=== PATIENT | female | born 1950 | race Hispanic/Latino ===

== ENCOUNTER 2017-03-08 08:51 | Outpatient (CLI) | payer MEDICARE, OTHER ==
--- NOTE | 2017-03-08 10:07 | CT ---
CT CHEST NONCONTRAST HIGH RESOLUTION: History: Interstitial lung disease. Follow up. Comparison: 09-24-15 FINDINGS: Slight enlargement of the trachea and mainstem bronchi is similar in appearance to the previous exam. Peripheral interstitial thickening and traction bronchiectasis involving primarily the lower lobes i s again demonstrated. Honeycombing better demonstrated on the previous study is partially obscured by motion artifact on today's exam. No pleural fluid, pneumothorax, or lobar consolidation are apparent . High resolution technique does not well evaluate for pulmonary nodules or the mediastinum. No bulky a denopathy is visible. IMPRESSION: Severe fibrotic lung disease with prominent intralobular and interlobular septal thickening, similar in appearance to the previous exam. No significant progression or new abnormalities are apparent. POS: [facility]
--- NOTE | 2017-03-09 09:17 | PFT ---
PATIENT HISTORY: HEIGHT: 61 IN WEIGHT: 97 LBS SMOKER: NO HOW LONG: PACKS PER DAY: PRODUCTIVE COUGH: NO LUNG DISEASE: PULMONARY FIBROSIS PHYSICIAN INTERPRETATION FINAL REPORT: There is a moderate reduction in the expiratory flow and VC, there is a worsening in the expiratory flow and VC following the bronchodilator. Patient was unable to exhale for the required 6 seconds during the FVC, multiply attempts were made. No lung volumes were ordered. DLCO was severely reduced. IMPRESSION: Restrictive pulmonary impairment. Patient had poor understanding of PFT and was unable to complete the test with good effort. Home Theatre Technician: TAMICA Workforce Services Representative: TAMICA YEE
== END 2017-03-08 08:52 | disposition home or self-care (01) ==
LOC: CT 08:51
PROVIDERS: ATTEND Internal Medicine
DX: J84.10 Pulmonary fibrosis, unspecified (principal)
CPT/HCPCS: 71250; 94010; 94729

== ENCOUNTER 2017-07-19 08:59 | Outpatient (CLI) | payer MEDICARE | END 2017-07-19 09:00 | disposition home or self-care (01) | LOC: CP 08:59 | PROVIDERS: ATTEND Internal Medicine | DX: J84.9 Interstitial pulmonary disease, unspecified (principal) ==

== ENCOUNTER 2017-07-19 09:41 | Inpatient (IN) | payer MEDICARE ==
[2017-07-19 10:25] LABS: #Basophils 0.1 thou/uL (0.0-0.2); #Eosinphils 0.2 thou/uL (0.0-0.7); #Lymphocytes 2.1 thou/uL (1.20-3.40); #Monocytes 0.6 thou/uL (0.11-0.59); #Neutrophils 6.2 thou/uL (1.40-6.50); %Basophils 0.7 % (0.0-1.0); %Lymphocytes 23.2 % (21.0-51.0); %Monocytes 6.4 % (0.0-10.0); %Neutrophils 67.7 % (42.0-75.0); Mean Corpuscular HGB CONC 30.9 g/dL (32.0-36.0); Mean Corpuscular Hemoglobin 27.7 pg (27.0-31.0); Mean Corpuscular Volume 89.6 fl (81.0-99.0); Platelet Count 341 thou/uL (130-400); RBC Distribution Width 14.2 % (11.5-14.5); Red Blood Cell (RBC) Count 4.33 mill/uL (4.20-5.40); White Blood Cell (WBC) Count 9.2 thou/uL (4.8-10.8)
[2017-07-19 10:44] LABS: ALT (SGPT) 11 U/L (8-55); AST (SGOT) 27 U/L (5-34); Albumin 3.4 g/dL (3.4-4.8); Alkaline Phosphatase 90 U/L (40-150); Anion Gap 17 mmol/L (10-20); BUN (Urea Nitrogen) 21 mg/dL (9.8-20.1); Bilirubin, Total 0.8 mg/dL (0.2-1.2); Calc. Creatinine Clearance 0 mL/min (70-130); Calcium 9.1 mg/dL (7.8-10.44); Carbon Dioxide 22 mmol/L (23-31); Chloride 102 mmol/L (98-107); Estimated GFR-MDRD 72; Globulin 3.9 g/dL (2.4-3.5); Glucose 229 mg/dL (80-115); Potassium 4.3 mmol/L (3.5-5.1); Protein, Total 7.3 g/dL (6.0-8.3); Sodium 137 mmol/L (136-145)
[2017-07-19] MEDS ORDERED: ISOVUE-370 76%-LOCM 1 ML ONE (11:02)
[2017-07-19 11:22] LABS: Base Excess-Venous 5.6 mmol/L (0 (+/- 2.5)); Bicarbonate (HCO3v) 32.5 mmol/L (1.0-85.0); CO2 Tension (PvCO2) 55.9 mmHg (41.0-51.0); Calcium, Ionized 1.18 mmol/L (1.12-1.32); O2 Tension (PvO2) 21.1 mmHg (35.0-45.0); Potassium 3.7 mmol/L (3.4-4.7); T. Carbon Dioxide 34.2 mmol/L (1.0-85.0); pH (Venous) 7.373 (7.35-7.45)
[2017-07-19 11:53] LABS: CKMB 2.7 ng/mL (0-6.6); Troponin I 0.117 ng/mL (< 0.028)
--- NOTE | 2017-07-19 11:59 | RAD ---
PORTABLE CHEST ONE VIEW: 07/19/2017 9:35 a.m. HISTORY: Dyspnea. COMPARISON: 09/24/2015 FINDINGS: The heart size is enlarged. Diffuse interstitial changes, consistent with fibrosis, are again seen. No lobar consolidation, pneumothoraces, ang pleural edema, or pleural effusions are identified. POS: [facility]
[2017-07-19] MEDS ORDERED: Enoxaparin Sodium 60 MG/0.6 ML SYRINGE ONE (12:35)
--- NOTE | 2017-07-19 12:52 | CT ---
CT ANGIO CHEST WITH IV CONTRAST: Technique: Multiple axial tomograms were obtained through the chest with IV enhancement follow [facility] [place] angio protocol with multiplanar reconstruction and 3D post processing. Indications: Shortness of breath, cough, hypoxia. History of pulmonary fibrosis. Assess for pulmonary embolus. FINDINGS: Pulmonary arteries show adequate opacification. There is a linear filling defect in the right lower l obe pulmonary artery consistent with a right lower lobe pulmonary embolus. No other filling defect id entified. The lungs again show diffuse honeycombing peripherally with interstitial thickening, pleural thickeni ng, and fibrotic stranding consistent with chronic lung disease. Aorta is not well opacified and thoracic aorta cannot be adequately evaluated. There is no evidence o f aneurysmal dilation. There is evidence of mediastinal and hilar adenopathy. Enlarged precarinal ly mph node measures up to 3.3 cm. There are bilateral hilar nodes with the right infrahilar node measur ing up to 1.3 cm. IMPRESSION: 1. Linear defect consistent with a pulmonary embolus in an anterior right lower lung pulmonary artery , possibly right middle lobe. 2. Mediastinal and hilar adenopathy. A 1.3 cm node in the right infrahilar region and mediastinal lym ph nodes measuring up to 2.3 cm. 3. Chronic lung parenchymal changes. 4. Findings were relayed to Dr. Dowling by phone at the time of dictation. POS: [facility]
--- NOTE | 2017-07-19 13:21 | HP ---
PRIMARY CARE PHYSICIAN: Dr. Cherry Alfonso. PRIMARY PROSTHETIC MAKEUP DESIGNER: Dr. Lobo. REASON FOR ADMISSION: Sent from the benefit specialist's office for respiratory distress. HISTORY OF PRESENT ILLNESS: A 67-year-old female who has underlying chronic respiratory failure on home oxygen therapy as well as idiopathic pulmonary fibrosis, diabetes type 2, hypertension, and dyslipidemia who went to see Dr. Lobo earlier today for her regular followup visit. The patient appeared tachypneic with respiratory rate in 40s, and she was saturating only 82 % on 4 liter oxygen. Patient was also tachycardic and relatively hypotensive and that is why the patient was sent to emergency room from Dr. Lobo's office. When patient presented to emergency room, she was in respiratory distress with tachypnea. She required nonrebreather oxygen and after that her oxygen saturation improved. Patient denies any chest pain. She does feel dyspnea on exertion. Her exercise tolerance and walking distance significantly reduced. Her appetite is also reduced and she lost some weight. She reports that she was feeling dizzy, weak and she was feeling dry mouth and her urine was dark and concentrated. She denies any dysuria, hematuria. She denies any pleuritic chest pain. She denies any syncope. She denies any orthopnea, PND or leg swelling. She is able to sleep during nighttime without any problems. She does have dry cough without any sputum. She denies any hemoptysis. In the emergency room, this patient had CT angiography which showed subsegmental pulmonary embolism on the right side. The patient is treated with oxygen in the emergency room and she was given Lovenox 1 mg per kg as well as DuoNeb therapy was given. After that, patient's condition was little bit stabilized. ALLERGIES: No known drug allergy. CURRENT HOME MEDICATIONS: Metformin 1000 mg twice daily, losartan 100 mg p.o. daily, Lipitor 80 mg p.o. daily, CellCept 500 mg p.o. twice daily, Protonix 40 mg p.o. daily, prednisone 15 mg p.o. daily. REVIEW OF SYSTEMS: The following complete review of systems was negative, unless otherwise mentioned in the HPI or below: Constitutional: Weight loss or gain, ability to conduct usual activities. Skin: Rash, itching. Eyes: Double vision, pain. ENT/Mouth: Nose bleeding, neck stiffness, pain, tenderness. Cardiovascular: Palpitations, dyspnea on exertion, orthopnea. Respiratory: Shortness of breath, wheezing, cough, hemoptysis, fever or night sweats. Gastrointestinal: Poor appetite, abdominal pain, heartburn, nausea, vomiting, constipation, or diarrhea. Genitourinary: Urgency, frequency, dysuria, nocturia. Musculoskeletal: Pain, swelling. Neurologic/Psychiatric: Anxiety, depression. Allergy/Immunologic: Skin rash, bleeding tendency. Please see my HPI for pertinent positive and negative. All other review of systems reviewed and negative except as mentioned in the HPI. PAST MEDICAL HISTORY: Hypertension, diabetes type 2, idiopathic pulmonary fibrosis, chronic respiratory failure on home oxygen therapy. PAST SURGICAL HISTORY: Reviewed and negative. PAST PSYCHIATRIC HISTORY: Reviewed and negative. SOCIAL HISTORY: Patient is and lives at home with her . No history of tobacco, alcohol or illicit drug abuse. FAMILY HISTORY: No strong family history of premature coronary artery disease, stroke or cancer. Diabetes and hypertension runs among several family members. EMERGENCY ROOM COURSE: Patient is given Lovenox 1 mg per kg, DuoNeb therapy. PHYSICAL EXAMINATION: VITAL SIGNS: On arrival, blood pressure 104/66, pulse 95, respiratory rate 45, temperature 97.7, saturation 82% on 4 liter nasal cannula, 100% with nonrebreather, weight 52.1 kilograms. GENERAL: Patient is currently alert, awake, no obvious acute distress. HEENT: Head: Normocephalic, atraumatic. Eyes: Pupils round, reactive to light. Pale conjunctivae. No icterus. No nystagmus. Extraocular muscle intact. ENT: Dry appearing mucous membrane. No oral lesion, no pharyngeal erythema, no exudate. NECK: Supple, no JVD, no thyromegaly, no carotid bruit, no jugular venous distention. LUNGS: Bibasilar coarse crackles, tachypnea. No wheezing. CARDIAC: S1, S2 appears regular. Slight tachycardia. No murmur, no gallop, no rub. ABDOMEN: Soft, bowel sounds present, nontender, nondistended. No organomegaly , no mass, no suprapubic tenderness. BACK: Unremarkable, no CVA tenderness. EXTREMITIES: Upper extremity, passive movement of all joints are normal. Lower extremity, no edema. Good peripheral pulsation, no calf tenderness. SKIN: No skin rash. HEMATOLOGICAL: No lymphadenopathy. PSYCHIATRIC: Normal affect. SIGNIFICANT LABORATORY DATA AND IMAGING: EKG showing normal sinus rhythms without any ischemic changes. The environmental monitoring technician showing sinus rhythm. CT angiography showing segmental right lower lobe pulmonary embolism, pulmonary fibrosis type of picture. BMP shows sodium 137, potassium 4.3, chloride 102, carbon dioxide 22, anion gap 17, BUN 21, creatinine 0.80, glucose 229, calcium 9.1. LFT: Protein 7.3, albumin 3.4, AST 27, ALT 11, alkaline phosphatase 90. CBC: WBC 9.2, hemoglobin 12.0, platelets 341. VBG: pH 7.37, CO2 55.9, O2 21.2 , bicarbonate 32.5. CK-MB 2.7, troponin 0.117. ASSESSMENT: 1. Acute on chronic respiratory failure with hypoxia secondary to combined idiopathic pulmonary fibrosis as well as pulmonary embolism. 2. Right segmental pulmonary embolism. 3. Elevated troponin, likely due to demand ischemia. 4. Idiopathic pulmonary fibrosis gradually worsening. 5. Diabetes type 2, uncontrolled. 6. Hypertension. 7. Dyslipidemia. 8. Mild protein calorie malnutrition. PLAN: Full admission to telemetry floor, serial cardiac enzymes x3 to rule out acute coronary syndrome. Echocardiography to assess ejection fraction and other structural abnormality as well as right ventricular pressure. Lovenox 1 mg per kg subcu twice daily for anticoagulation. We will check stool for guaiac. We will monitor H&H, creatinine, and platelet periodically. The patient will need newer anticoagulant therapy, Eliquis upon discharge. Patient will be given Solu-Medrol 40 mg IV q.6 hours, DuoNeb therapy q.6 hourly and as needed basis, Dulera two puff inhalation b.i.d. We will resume the patient's home medication including losartan, metformin, Lipitor, CellCept, Protonix while in hospital as per home dosage. Deep venous thrombosis prophylaxis. Patient is already on full dose of Lovenox therapy. Gastrointestinal prophylaxis. Protonix 40 mg p.o. daily. CODE STATUS: The patient is FULL CODE. Patient's is surrogate decision maker. Disposition plan based on clinical course. We are expecting patient's stay in hospital more than 2 midnights. Plan of care discussed with the patient and her at bedside extensively. We will also consult Dr. Lobo while in hospital. NAKIA
[2017-07-19 13:45] LABS: Troponin I 0.154 ng/mL (< 0.028)
[2017-07-19] MEDS ORDERED: Benzonatate 100 MG CAP PO PRN (13:55)
[2017-07-19] MEDS ORDERED: hydrALAZINE 20 MG/ML VIAL SLOW IVP PRN (13:55)
[2017-07-19] MEDS ORDERED: Loperamide HCl 2 MG CAP PO PRN (13:55)
[2017-07-19] MEDS ORDERED: Diabetic Tussin 200 MG/10 ML UDCUP PO PRN (13:55)
[2017-07-19] MEDS ORDERED: Loratadine 10 MG TAB PO PRN (13:55)
[2017-07-19] MEDS ORDERED: Milk Of Magnesia 30 ML UDCUP PO PRN (13:55)
[2017-07-19] MEDS ORDERED: HumaLOG 300 UNITS/3 ML VIAL SC PRN (13:55)
[2017-07-19] MEDS ORDERED: Dextrose 50% Abboject 50 ML SYRINGE SLOW IVP PRN (13:55)
[2017-07-19] MEDS ORDERED: Eucerin (Mineral Oil/Petrolatum,White) 30 gm Jar TOP PRN (13:55)
[2017-07-19] MEDS ORDERED: Dextrose 5% in Water 1,000 ML IV PRN (13:55)
[2017-07-19] MEDS ORDERED: Ondansetron ODT 4 MG TAB PO PRN (13:55)
[2017-07-19] MEDS ORDERED: HYDROcodone/Acetaminophen 5/325 mg Tablet PO PRN (13:55)
[2017-07-19] MEDS ORDERED: Acetaminophen 325 MG TAB PO PRN (13:55)
[2017-07-19] MEDS ORDERED: Senokot 8.6 MG TAB PO PRN (13:55)
[2017-07-19] MEDS ORDERED: Artificial Tear Sol 15 ML BOT EA EYE PRN (13:55)
[2017-07-19] MEDS ORDERED: Ondansetron HCl/PF 4 MG/2 ML Vial IVP PRN (13:55)
[2017-07-19] MEDS ORDERED: Sodium Chloride 0.65% Nasal 44 ML BOT EA NARE PRN (13:55)
[2017-07-19] MEDS ORDERED: Chloraseptic Spray 180 ml Bottle PO PRN (13:55)
--- NOTE | 2017-07-19 15:17 | ULT ---
BILATERAL LOWER EXTREMITY VENOUS DUPLEX EXAM: Date: 07/19/17 Deep veins of both lower extremities evaluate with color Doppler and spectral analysis in compression . INDICATION: Pulmonary embolism. Assess for venous thrombosis. FINDINGS: Deep veins of both lower extremities show normal blood flow and compression. No evidence of deep veno us thrombosis identified in either lower extremity. IMPRESSION: No evidence of deep venous thrombosis. POS: [facility]
[2017-07-19] MEDS ORDERED: Ondansetron ODT 4 MG TAB ONE (15:43)
[2017-07-19 16:53] LABS: Troponin I 0.148 ng/mL (< 0.028)
[2017-07-19 17:06] VITALS: BMI 15.7
[2017-07-19] MEDS: Sodium Chloride 0.9% 1,000 ML IV SCH (17:38)
[2017-07-19] MEDS: Mometasone/Formoterol 120 PUFF INHALER INH SCH (20:18)
[2017-07-19] MEDS: Atorvastatin Calcium 40 MG TAB PO SCH (20:33)
[2017-07-19] MEDS: Enoxaparin Sodium 60 MG/0.6 ML SYRINGE SC SCH (20:34)
[2017-07-20 04:04] LABS: #Lymphocytes 0.6 thou/uL (1.20-3.40); #Neutrophils 3.6 thou/uL (1.40-6.50); %Basophils 0.2 % (0.0-1.0); %Eosinophils 0.2 % (0.0-10.0); %Lymphocytes 14.3 % (21.0-51.0); %Monocytes 0.9 % (0.0-10.0); %Neutrophils 84.4 % (42.0-75.0); Hemoglobin 11.9 g/dL (12.0-16.0); Mean Corpuscular HGB CONC 30.7 g/dL (32.0-36.0); Mean Corpuscular Hemoglobin 27.7 pg (27.0-31.0); Mean Corpuscular Volume 90.3 fl (81.0-99.0); Platelet Count 304 thou/uL (130-400); RBC Distribution Width 13.9 % (11.5-14.5); Red Blood Cell (RBC) Count 4.29 mill/uL (4.20-5.40); White Blood Cell (WBC) Count 4.3 thou/uL (4.8-10.8)
[2017-07-20] MEDS: Sodium Chloride 0.9% 1,000 ML IV SCH ×2 (04:12→08:23)
[2017-07-20 04:15] LABS: INR-International Normal Ratio 1.2; Prothrombin Time 15.3 SEC (12.0-14.7)
[2017-07-20 04:17] LABS: D-Dimer Test 2.55 *mcg/mL (0.27-0.43)
[2017-07-20 04:40] LABS: Anion Gap 15 mmol/L (10-20); BUN (Urea Nitrogen) 20 mg/dL (9.8-20.1); Calc. Creatinine Clearance 47 mL/min (70-130); Calcium 8.9 mg/dL (7.8-10.44); Carbon Dioxide 26 mmol/L (23-31); Cardiac Risk 3.5 (Less than 4.5); Chloride 103 mmol/L (98-107); Cholesterol 127 mg/dl (< 200 Desired); Estimated GFR-MDRD 81; Glucose 154 mg/dL (80-115); HDL Cholesterol 36 mg/dL (>60 Neg Risk); LDL Cholesterol, Calculated 78 mg/dL; Potassium 4.1 mmol/L (3.5-5.1); Sodium 140 mmol/L (136-145); Triglycerides 65 mg/dL (Less than 150)
[2017-07-20] MEDS: Mometasone/Formoterol 120 PUFF INHALER INH SCH ×2 (07:44→18:19)
[2017-07-20] MEDS: Losartan 25 MG TAB PO SCH (08:21)
[2017-07-20] MEDS: Mycophenolate 250 MG CAP PO SCH ×2 (08:21→20:27)
[2017-07-20] MEDS: DULoxetine 30 MG CAP PO SCH ×2 (08:22→20:27)
[2017-07-20] MEDS: Enoxaparin Sodium 60 MG/0.6 ML SYRINGE SC SCH (08:23)
[2017-07-20] MEDS ORDERED: Non-Formulary Item 1 EACH (Losartan Potassium [Losartan Potassium] 100 MG) PO SCH (09:00)
[2017-07-20] MEDS ORDERED: MYCOPHENOLATE MOFETIL 500 MG PO SCH (09:00)
--- NOTE | 2017-07-20 11:07 | PDOC.PN ---
- Subjective Encounter Start Date: 07/20/17 Encounter Start Time: 09:20 Patient seen and examined. No new complaints. No overnight events pt feels better, less dyspnea, no chest pain, no fever - Objective MAR Reviewed: Yes Vital Signs & Weight: Vital Signs (12 hours) Temp Pulse Resp BP Pulse Ox 07/20/17 08:00 97.5 F L 83 15 100 07/20/17 07:44 97.5 F L 83 15 105/63 100 07/20/17 03:46 97.4 F L 84 24 H 109/71 96 07/20/17 00:29 82 30 H 99 07/19/17 23:46 98.2 F 84 25 H 124/79 98 Weight Admit Weight 83 lb 8 oz Weight 83 lb 8 oz Result Diagrams: 07/20/17 03:46 07/20/17 03:46 Additional Labs: Accuchecks 07/20/17 07/20/17 07/19/17 10:47 05:47 20:08 POC Glucose 198 H 143 H 89 EKG Reviewed by me: Yes (nsr) Phys Exam - Physical Examination Constitutional: NAD HEENT: PERRLA, moist MMs, sclera anicteric Neck: no JVD, supple Respiratory: no wheezing, no rhonchi bilateral coarse rales Cardiovascular: RRR, no significant murmur, no rub Gastrointestinal: soft, non-tender, no distention, positive bowel sounds Musculoskeletal: no edema, pulses present Neurological: non-focal, normal sensation, moves all 4 limbs Psychiatric: normal affect, A&O x 3 Skin: no rash, normal turgor Dx/Plan (1) Acute and chronic respiratory failure with hypoxia Code(s): J96.21 - ACUTE AND CHRONIC RESPIRATORY FAILURE WITH HYPOXIA Status: Acute (2) Demand ischemia of myocardium Code(s): I24.8 - OTHER FORMS OF ACUTE ISCHEMIC HEART DISEASE Status: Acute (3) Pulmonary embolism Code(s): I26.99 - OTHER PULMONARY EMBOLISM WITHOUT ACUTE COR PULMONALE Status : Acute (4) Anxiety and depression Code(s): F41.9 - ANXIETY DISORDER, UNSPECIFIED; F32.9 - MAJOR DEPRESSIVE DISORDER, SINGLE EPISODE, UNSPECIFIED Status: Chronic (5) Diabetes type 2, controlled Code(s): E11.9 - TYPE 2 DIABETES MELLITUS WITHOUT COMPLICATIONS Status: Chronic (6) Hyperlipidemia Code(s): E78.5 - HYPERLIPIDEMIA, UNSPECIFIED Status: Chronic (7) Hypertension Code(s): I10 - ESSENTIAL (PRIMARY) HYPERTENSION Status: Chronic (8) Idiopathic pulmonary fibrosis Code(s): J84.112 - IDIOPATHIC PULMONARY FIBROSIS Status: Chronic (9) Protein-calorie malnutrition, moderate Code(s): E44.0 - MODERATE PROTEIN-CALORIE MALNUTRITION Status: Chronic - Plan cont current plan of care, plan discussed w/ family, respiratory therapy * continue lovenox for PE * continue IV solumderol * selected home medication reconciled * medication reviewed as below * symptomatic treatment * discussed with daughter bedside * Dr Lobo will see her today * echo pending * DC IVF. Review of Systems - Review of Systems Constitutional: weakness. negative: fever, chills, sweats, malaise, other Eyes: negative: Pain, Vision Change, Conjunctivae Inflammation, Eyelid Inflammation, Redness, Other ENT: negative: Ear Pain, Ear Discharge, Nose Pain, Nose Discharge, Nose Congestion, Mouth Pain, Mouth Swelling, Throat Pain, Throat Swelling, Other Respiratory: Cough, Shortness of Breath, SOB with Excertion. negative: Dry, Hemoptysis, Pleuritic Pain, Sputum, Wheezing Cardiovascular: negative: chest pain, palpitations, orthopnea, paroxysmal nocturnal dyspnea, edema, light headedness, other Gastrointestinal: negative: Nausea, Vomiting, Abdominal Pain, Diarrhea, Constipation, Melena, Hematochezia, Other Genitourinary: negative: Dysuria, Frequency, Incontinence, Hematuria, Retention , Other Musculoskeletal: negative: Neck Pain, Shoulder Pain, Arm Pain, Back Pain, Hand Pain, Leg Pain, Foot Pain, Other Skin: negative: Rash, Lesions, Rai, Bruising, Other - Medications/Allergies Allergies/Adverse Reactions: Allergies Allergy/AdvReac Type Severity Reaction Status Date / Time No Known Drug Allergies Allergy Verified 07/19/17 17:18 Medications: Current Medications Acetaminophen (Tylenol) 650 mg PO Q4H PRN PRN Reason: Headache/Fever or Pain Hydrocodone Bitart/Acetaminophen ([place] 5/325) 1 tab PO Q4H PRN PRN Reason: Moderate Pain (4-6) Al Hydroxide/Mg Hydroxide (Maalox) 30 ml PO Q6H PRN PRN Reason: Heartburn or Indigestion Albuterol/Ipratropium (Duoneb) 3 ml NEB [id number] [facility] Last Admin: 07/20/17 07:44 Dose: 3 ml Albuterol/Ipratropium (Duoneb) 3 ml NEB [id number] PRN PRN Reason: SOB &/or Wheezing Artificial Tears (Tears Renewed 15ml Bottle) 0 drop EA EYE PRN PRN PRN Reason: Dry Eyes Aspirin (Aspirin Chewable) 81 mg PO DAILY [facility] Last Admin: 07/20/17 08:21 Dose: 81 mg Atorvastatin Calcium (Lipitor) 80 mg PO HS [facility] Last Admin: 07/19/17 20:33 Dose: 80 mg Benzonatate (Tessalon) 100 mg PO Q4H PRN PRN Reason: Cough Dextrose/Water (Dextrose 50%) 25 gm SLOW IVP PRN PRN PRN Reason: Hypoglycemia Duloxetine HCl (Cymbalta) 30 mg PO BID [facility] Last Admin: 07/20/17 08:22 Dose: 30 mg Enoxaparin Sodium (Lovenox) 50 mg SC 0900,2100 [facility] Last Admin: 07/20/17 08:23 Dose: 50 mg Glucagon (Glucagon) 1 mg IM PRN PRN PRN Reason: Hypoglycemia Guaifenesin (Robitussin Sf) 200 mg PO Q4H PRN PRN Reason: Cough Hydralazine HCl (Apresoline) 10 mg SLOW IVP Q4H PRN PRN Reason: Systolic BP > 180 Dextrose/Water (D5w) 1,000 mls @ 0 mls/hr IV .Q0M PRN; As Directed PRN Reason: Hypoglycemia Insulin Human Lispro (Humalog) 0 units SC .AGGRESSIVE SLIDING PRN PRN Reason: Aggressive Correctional Scale Insulin Human Lispro (Humalog) 0 units SC .BEDTIME SLIDING SC PRN PRN Reason: Bedtime Correctional Scale Loperamide HCl (Imodium) 2 mg PO PRN PRN PRN Reason: Diarrhea/Loose Stools Loratadine (Claritin) 10 mg PO DAILYPRN PRN PRN Reason: Sinus Symptoms Losartan Potassium (Cozaar) 100 mg PO DAILY [facility] Last Admin: 07/20/17 08:21 Dose: 100 mg Magnesium Hydroxide (Milk Of Magnesium) 30 ml PO DAILYPRN PRN PRN Reason: Constipation Methylprednisolone Sodium Succinate (Solu-Medrol) 40 mg IVP Q6HR [facility] Last Admin: 07/20/17 05:11 Dose: 40 mg Mineral Oil/White Petrolatum (Eucerin Cream) 0 gm TOP BIDPRN PRN PRN Reason: Dry Skin Mometasone Furoate/Formoterol Fumar (Dulera 200 Mcg/5 Mcg Inhaler) 2 puff INH BID-RT [facility] Last Admin: 07/20/17 07:44 Dose: 2 puff Mycophenolate Mofetil (Cellcept) 500 mg PO BID [facility] Last Admin: 07/20/17 08:21 Dose: 500 mg Ondansetron HCl (Zofran Odt) 4 mg PO Q6H PRN PRN Reason: Nausea/Vomiting Ondansetron HCl (Zofran) 4 mg IVP Q6H PRN PRN Reason: Nausea/Vomiting Pantoprazole Sodium (Protonix) 40 mg PO DAILY [facility] Last Admin: 07/20/17 08:21 Dose: 40 mg Phenol (Chloraseptic [place] 180 Ml Bot) 0 ml PO PRN PRN PRN Reason: Sore Throat Senna (Senokot) 2 tab PO HSPRN PRN PRN Reason: Constipation Sodium Chloride ([place] Nasal [place] 0.65%) 0 ml EA NARE QIDPRN PRN PRN Reason: Nasal Congestion Sodium Chloride (Flush - Normal Saline) 10 ml IVF Q12HR [facility] Last Admin: 07/20/17 08:24 Dose: 10 ml Sodium Chloride (Flush - Normal Saline) 10 ml IVF PRN PRN PRN Reason: Saline Flush
[2017-07-20] MEDS ORDERED: Furosemide 40 MG TAB PO SCH (16:45)
[2017-07-20] MEDS: HumaLOG 300 UNITS/3 ML VIAL SC PRN (17:40)
--- NOTE | 2017-07-20 19:28 | CON ---
DATE OF CONSULTATION: 07/20/2017 SERVICE: Pulmonary Medicine. INTERVAL HISTORY: The patient is a 67-year-old female with past medical history significant for advanced pulmonary fibrosis and chronic hypoxic respiratory failure. She was in her usual state of health until a couple of years ago. She has had slow progressive dyspnea on exertion. She has e ssentially developed end-stage lung disease. She was going to see me in clinic today, but decided th at her severity of shortness of breath with getting out of her house into a car, and across a couple of cities was too much for her. She redirected to the Emergency Department. In the Emergency Depart ment, a CT PE protocol was done. There was severe right-sided strain on the heart. That being said, there is only very tiny pulmonary embolism. She was started on some anticoagulation. She was given some IV fluids overnight. She denies any current fevers, chills, nausea or vomiting. She coughs on a daily basis. She is on chronic steroid therapy. Otherwise, there has been no interval change to her condition. PAST MEDICAL HISTORY: 1. Idiopathic pulmonary fibrosis. 2. Chronic hypoxic respiratory failure. 3. Type 2 diabetes mellitus. 4. Hypertension. PAST SURGICAL HISTORY: None. SOCIAL HISTORY: The patient is and lives with her . She has a very attentive family. She has no history of alcohol, tobacco or illicit drug use. She has no exposure to chemicals, dust s asbestos or tuberculosis. FAMILY HISTORY: Noncontributory. ALLERGIES: No known drug allergies. MEDICATIONS: List of her inpatient medications were reviewed. Multiple updates were made. REVIEW OF SYSTEMS: General, head, ears, eyes, nose, throat, cardiovascular, respiratory, GI, , mus culoskeletal, neurologic, and skin is negative except as mentioned in the HPI. PHYSICAL EXAMINATION: VITAL SIGNS: Afebrile, pulse 95, blood pressure 107/69, respirations 18, saturation 100% on 4 liters nasal cannula. GENERAL: Patient is awake and alert, in no apparent distress. LUNGS: Decent air entry. Crackles are present. No prolonged expiratory phase. HEART: Normal rate, regular. ABDOMEN: Soft, nontender, nondistended. Bowel sounds are positive. MUSCULOSKELETAL: No cyanosis or clubbing. There is no pitting in the bilateral lower extremities. NEUROLOGIC: Grossly nonfocal. LABORATORY DATA: WBC 4.3, hemoglobin 11.9, platelets 304,000. INR 1.2. A pH 7.33, pCO2 of 56, pO2 of 21. Basic metabolic profile is unremarkable. Troponin is finally down trending to 0.15. Liver f unction studies are essentially unremarkable. IMAGIN. Chest x-ray demonstrates diffuse interstitial changes consistent with fibrosis. No pleural fluid or consolidation is identified. CTA of the chest demonstrates a very small pulmonary embolism. The re is extensive pleural parenchymal lung disease consistent with pulmonary fibrosis with traction bro nchiectasis, and multiple layers of honeycombing, which is worse in the periphery, in dependent regio ns of the lung. There is a mediastinal and hilar adenopathy which measures roughly 1.3 cm in the rig ht infrahilar region. There is some minimally pathologic mediastinal lymph nodes measuring 2.3 cm. 2. Ultrasound of bilateral lower extremities demonstrates no evidence of DVT. 3. Echocardiogram demonstrates severely elevated right ventricular pressures with paradoxical septal motion. E to A flow reversal is identified suggestive of some diastolic dysfunction, which is likel y coming from the right ventricular overload. Left atrium has normal size. There is marked dilation of the right atrium and the right ventricle. There is a small, trivial pericardial effusion. ASSESSMENT: 1. Acute on chronic hypoxic respiratory failure. 2. Chronic hypercapnic respiratory failure. 3. Acute pulmonary embolism. 4. Idiopathic pulmonary fibrosis, advanced. 5. Pulmonary hypertension, severe with cor pulmonale. PLAN: We will de-escalate the steroids. I agree with anticoagulation. She will likely require life long anticoagulation moving forward. This is because she cannot tolerate even a small PE. This PE d id not create her elevated systolic pulmonary artery pressures. She currently is severely volume ove rloaded on the right side. We are going to cautiously discontinue her IV fluids, and introduce small doses of Lasix. If it appears that she does not tolerate this, I will initiate her on an inotropic agent to see if we can facilitate diuresis and offload the right ventricle. [facility] the outpatient [facility], she will need to have a formal evaluation for pulmonary hypertension to see whether or not she is a candidate for pulmonary vasodilators. She will need to stay in IMCU for the time being.
[2017-07-20] MEDS: Apixaban 5 MG TAB PO SCH (20:27)
[2017-07-20] MEDS: Atorvastatin Calcium 40 MG TAB PO SCH (20:27)
[2017-07-21 04:21] LABS: Hemoglobin 10.6 g/dL (12.0-16.0); Platelet Count 288 thou/uL (130-400)
[2017-07-21 04:25] LABS: INR-International Normal Ratio 1.5; Prothrombin Time 18.6 SEC (12.0-14.7)
[2017-07-21] MEDS: Mometasone/Formoterol 120 PUFF INHALER INH SCH ×2 (07:50→18:06)
[2017-07-21] MEDS: Furosemide 40 MG TAB PO SCH (07:57)
[2017-07-21] MEDS: Apixaban 5 MG TAB PO SCH ×2 (08:00→20:26)
[2017-07-21] MEDS: Mycophenolate 250 MG CAP PO SCH ×2 (08:01→20:26)
[2017-07-21] MEDS: DULoxetine 30 MG CAP PO SCH ×2 (08:01→20:26)
[2017-07-21] MEDS: Losartan 25 MG TAB PO SCH (08:03)
--- NOTE | 2017-07-21 11:10 | PDOC.PN ---
- Subjective Encounter Start Date: 07/21/17 Encounter Start Time: 09:50 Patient seen and examined. No new complaints. No overnight events - Objective MAR Reviewed: Yes Vital Signs & Weight: Vital Signs (12 hours) Temp Pulse Pulse Pulse Resp BP BP 07/21/17 09:07 99 73 129/81 95/63 07/21/17 08:00 98.5 F 86 14 07/21/17 07:58 98.5 F 86 14 07/21/17 07:49 92 18 07/21/17 03:51 97.6 F 86 20 07/21/17 00:32 87 16 07/21/17 00:00 97.1 F L 86 23 H BP Pulse Ox Pulse Ox Pulse Ox Pulse Ox 07/21/17 09:07 88 L 94 L 91 L 07/21/17 08:00 100 07/21/17 07:58 130/85 100 07/21/17 07:49 100 07/21/17 03:51 117/74 100 07/21/17 00:32 97 07/21/17 00:00 102/70 97 Weight Admit Weight 83 lb 8 oz Weight 85 lb I&O: 07/20/17 07/21/17 07/22/17 06:59 06:59 06:59 Intake Total 240 Output Total 1750 Balance -1510 Result Diagrams: 07/21/17 04:01 07/21/17 04:01 Additional Labs: Accuchecks 07/21/17 07/20/17 07/20/17 05:49 20:35 16:50 POC Glucose 109 246 H 226 H Radiology Reviewed by me: Yes (echo) EKG Reviewed by me: Yes (nsr) Phys Exam - Physical Examination Constitutional: NAD HEENT: PERRLA, moist MMs, sclera anicteric Neck: no JVD, supple Respiratory: no wheezing, no rhonchi bilateral coarse rales Cardiovascular: RRR, no rub Gastrointestinal: soft, non-tender, no distention, positive bowel sounds Musculoskeletal: no edema, pulses present Neurological: non-focal, normal sensation, moves all 4 limbs Lymphatic: no nodes Psychiatric: normal affect, A&O x 3 Skin: no rash, normal turgor Dx/Plan (1) Acute and chronic respiratory failure with hypoxia Code(s): J96.21 - ACUTE AND CHRONIC RESPIRATORY FAILURE WITH HYPOXIA Status: Acute (2) Demand ischemia of myocardium Code(s): I24.8 - OTHER FORMS OF ACUTE ISCHEMIC HEART DISEASE Status: Acute (3) Pulmonary embolism Code(s): I26.99 - OTHER PULMONARY EMBOLISM WITHOUT ACUTE COR PULMONALE Status : Acute (4) Anxiety and depression Code(s): F41.9 - ANXIETY DISORDER, UNSPECIFIED; F32.9 - MAJOR DEPRESSIVE DISORDER, SINGLE EPISODE, UNSPECIFIED Status: Chronic (5) COR (chronic cor pulmonale) Code(s): I27.81 - COR PULMONALE (CHRONIC) Status: Chronic (6) Diabetes type 2, controlled Code(s): E11.9 - TYPE 2 DIABETES MELLITUS WITHOUT COMPLICATIONS Status: Chronic (7) Hyperlipidemia Code(s): E78.5 - HYPERLIPIDEMIA, UNSPECIFIED Status: Chronic (8) Hypertension Code(s): I10 - ESSENTIAL (PRIMARY) HYPERTENSION Status: Chronic (9) Idiopathic pulmonary fibrosis Code(s): J84.112 - IDIOPATHIC PULMONARY FIBROSIS Status: Chronic (10) Protein-calorie malnutrition, moderate Code(s): E44.0 - MODERATE PROTEIN-CALORIE MALNUTRITION Status: Chronic (11) Pulmonary hypertension, moderate to severe Code(s): I27.20 - PULMONARY HYPERTENSION, UNSPECIFIED Status: Chronic (12) Severe tricuspid regurgitation Code(s): I07.1 - RHEUMATIC TRICUSPID INSUFFICIENCY Status: Chronic - Plan cont current plan of care, plan discussed w/ family, continue antibiotics, respiratory therapy * continue elliquis * continue lasix * continue solumedrol * medication reviewed as below * symptomatic treatment * discussed with daughter * pulmonary following * ambulate as tolerated * will need outpt pulmonary hypertension clinic follow up. Review of Systems - Review of Systems Constitutional: negative: fever, chills, sweats, weakness, malaise, other Eyes: negative: Pain, Vision Change, Conjunctivae Inflammation, Eyelid Inflammation, Redness, Other ENT: negative: Ear Pain, Ear Discharge, Nose Pain, Nose Discharge, Nose Congestion, Mouth Pain, Mouth Swelling, Throat Pain, Throat Swelling, Other Respiratory: Shortness of Breath, SOB with Excertion. negative: Cough, Dry, Hemoptysis, Pleuritic Pain, Sputum, Wheezing Cardiovascular: negative: chest pain, palpitations, orthopnea, paroxysmal nocturnal dyspnea, edema, light headedness, other Gastrointestinal: negative: Nausea, Vomiting, Abdominal Pain, Diarrhea, Constipation, Melena, Hematochezia, Other Genitourinary: negative: Dysuria, Frequency, Incontinence, Hematuria, Retention , Other Musculoskeletal: negative: Neck Pain, Shoulder Pain, Arm Pain, Back Pain, Hand Pain, Leg Pain, Foot Pain, Other Skin: negative: Rash, Lesions, Rai, Bruising, Other - Medications/Allergies Allergies/Adverse Reactions: Allergies Allergy/AdvReac Type Severity Reaction Status Date / Time No Known Drug Allergies Allergy Verified 07/19/17 17:18 Medications: Current Medications Acetaminophen (Tylenol) 650 mg PO Q4H PRN PRN Reason: Headache/Fever or Pain Hydrocodone Bitart/Acetaminophen ([place] 5/325) 1 tab PO Q4H PRN PRN Reason: Moderate Pain (4-6) Al Hydroxide/Mg Hydroxide (Maalox) 30 ml PO Q6H PRN PRN Reason: Heartburn or Indigestion Albuterol/Ipratropium (Duoneb) 3 ml NEB [id number] [facility] Last Admin: 07/21/17 07:49 Dose: 3 ml Albuterol/Ipratropium (Duoneb) 3 ml NEB [id number] PRN PRN Reason: SOB &/or Wheezing Apixaban (Eliquis) 10 mg PO BID [facility] Last Admin: 07/21/17 08:00 Dose: 10 mg Artificial Tears (Tears Renewed 15ml Bottle) 0 drop EA EYE PRN PRN PRN Reason: Dry Eyes Aspirin (Aspirin Chewable) 81 mg PO DAILY [facility] Last Admin: 07/21/17 08:01 Dose: 81 mg Atorvastatin Calcium (Lipitor) 80 mg PO HS [facility] Last Admin: 07/20/17 20:27 Dose: 80 mg Benzonatate (Tessalon) 100 mg PO Q4H PRN PRN Reason: Cough Dextrose/Water (Dextrose 50%) 25 gm SLOW IVP PRN PRN PRN Reason: Hypoglycemia Duloxetine HCl (Cymbalta) 30 mg PO BID [facility] Last Admin: 07/21/17 08:01 Dose: 30 mg Furosemide (Lasix) 40 mg PO DAILY-AC [facility] Last Admin: 07/21/17 07:57 Dose: 40 mg Glucagon (Glucagon) 1 mg IM PRN PRN PRN Reason: Hypoglycemia Guaifenesin (Robitussin Sf) 200 mg PO Q4H PRN PRN Reason: Cough Hydralazine HCl (Apresoline) 10 mg SLOW IVP Q4H PRN PRN Reason: Systolic BP > 180 Dextrose/Water (D5w) 1,000 mls @ 0 mls/hr IV .Q0M PRN; As Directed PRN Reason: Hypoglycemia Insulin Human Lispro (Humalog) 0 units SC .AGGRESSIVE SLIDING PRN PRN Reason: Aggressive Correctional Scale Last Admin: 07/20/17 17:40 Dose: 6 unit Insulin Human Lispro (Humalog) 0 units SC .BEDTIME SLIDING SC PRN PRN Reason: Bedtime Correctional Scale Last Admin: 07/20/17 20:33 Dose: 2 unit Loperamide HCl (Imodium) 2 mg PO PRN PRN PRN Reason: Diarrhea/Loose Stools Loratadine (Claritin) 10 mg PO DAILYPRN PRN PRN Reason: Sinus Symptoms Losartan Potassium (Cozaar) 100 mg PO DAILY [facility] Last Admin: 07/21/17 08:03 Dose: 100 mg Magnesium Hydroxide (Milk Of Magnesium) 30 ml PO DAILYPRN PRN PRN Reason: Constipation Methylprednisolone Sodium Succinate (Solu-Medrol) 40 mg IVP DAILY [facility] Last Admin: 07/21/17 08:02 Dose: 40 mg Mineral Oil/White Petrolatum (Eucerin Cream) 0 gm TOP BIDPRN PRN PRN Reason: Dry Skin Mometasone Furoate/Formoterol Fumar (Dulera 200 Mcg/5 Mcg Inhaler) 2 puff INH BID-RT [facility] Last Admin: 07/21/17 07:50 Dose: 2 puff Mycophenolate Mofetil (Cellcept) 500 mg PO BID [facility] Last Admin: 07/21/17 08:01 Dose: 500 mg Ondansetron HCl (Zofran Odt) 4 mg PO Q6H PRN PRN Reason: Nausea/Vomiting Ondansetron HCl (Zofran) 4 mg IVP Q6H PRN PRN Reason: Nausea/Vomiting Pantoprazole Sodium (Protonix) 40 mg PO DAILY [facility] Last Admin: 07/21/17 08:01 Dose: 40 mg Phenol (Chloraseptic [place] 180 Ml Bot) 0 ml PO PRN PRN PRN Reason: Sore Throat Senna (Senokot) 2 tab PO HSPRN PRN PRN Reason: Constipation Sodium Chloride ([place] Nasal [place] 0.65%) 0 ml EA NARE QIDPRN PRN PRN Reason: Nasal Congestion Sodium Chloride (Flush - Normal Saline) 10 ml IVF Q12HR [facility] Last Admin: 07/21/17 08:02 Dose: 10 ml Sodium Chloride (Flush - Normal Saline) 10 ml IVF PRN PRN PRN Reason: Saline Flush
[2017-07-21] MEDS: HumaLOG 300 UNITS/3 ML VIAL SC PRN (11:22)
[2017-07-21] MEDS ORDERED: Furosemide 40 MG TAB PO SCH (14:15)
--- NOTE | 2017-07-21 14:33 | PRG ---
DATE OF SERVICE: 07/21/2017 SERVICE: Pulmonary Medicine. SUBJECTIVE: The patient's appetite improved. She has actually been able to walk up and down the [place] with little less dyspnea. Previously, she could not walk 2-3 steps without getting diaphoretic and losing all strength. She denies any current fevers or chills. She is not coughing anything up. PHYSICAL EXAMINATION: VITAL SIGNS: Afebrile, pulse 99, blood pressure 118/79, respirations 22, saturation 100% on 4 liters nasal cannula. GENERAL: The patient is awake, alert, in no apparent distress. LUNGS: Decent air entry. Crackles are extensive. No prolonged expiratory phase or wheezing is appr eciated. HEART: Normal rate and regular. ABDOMEN: Soft, nontender, nondistended. Bowel sounds are positive. MUSCULOSKELETAL: No cyanosis or clubbing. There is no pitting in the bilateral lower extremities. NEUROLOGIC: Grossly nonfocal. LABORATORY DATA: Hemoglobin 10.6, platelets 288,000. INR 1.5. Creatinine 0.72 and stable. ASSESSMENT: 1. Acute on chronic hypoxic respiratory failure, improving. 2. Chronic hypercapnic respiratory failure. 3. Acute pulmonary embolism. 4. Idiopathic pulmonary fibrosis, advanced. 5. Pulmonary hypertension, severe with acute right ventricular heart failure. DISCUSSION AND PLAN: We will continue to gently diuresing the patient. Tomorrow morning, we will re peat some laboratories. If along the way, the patient develops a little prerenal azotemia, please do not give additional fluids. If that occurs, an ionotropic agent will be considered. Ultimately, th e patient needs to be evaluated with a right ventricular heart catheterization to see if she is a can didate for pulmonary vasodilator therapy. I have already got the ball rolling to setup that referral .
[2017-07-21] MEDS: Atorvastatin Calcium 40 MG TAB PO SCH (20:26)
[2017-07-21] MEDS: Mag-Al 1200 mg/1200 mg/30 ML UDCUP PO PRN (22:38)
[2017-07-22 04:32] LABS: #Eosinphils 0.1 thou/uL (0.0-0.7); #Lymphocytes 1.9 thou/uL (1.20-3.40); #Monocytes 0.7 thou/uL (0.11-0.59); #Neutrophils 6.2 thou/uL (1.40-6.50); %Basophils 0.1 % (0.0-1.0); %Eosinophils 0.6 % (0.0-10.0); %Lymphocytes 21.5 % (21.0-51.0); %Monocytes 7.6 % (0.0-10.0); %Neutrophils 70.2 % (42.0-75.0); Hemoglobin 11.6 g/dL (12.0-16.0); Mean Corpuscular HGB CONC 30.7 g/dL (32.0-36.0); Mean Corpuscular Hemoglobin 27.4 pg (27.0-31.0); Mean Corpuscular Volume 89.2 fl (81.0-99.0); Mean Platelet Volume 6.7 fL (7.4-10.4); Platelet Count 303 thou/uL (130-400); RBC Distribution Width 13.8 % (11.5-14.5); Red Blood Cell (RBC) Count 4.22 mill/uL (4.20-5.40); White Blood Cell (WBC) Count 8.9 thou/uL (4.8-10.8)
[2017-07-22 04:36] LABS: BUN (Urea Nitrogen) 15 mg/dL (9.8-20.1); Calc. Creatinine Clearance 51 mL/min (70-130); Estimated GFR-MDRD 88; Glucose 98 mg/dL (80-115); Magnesium 1.5 mg/dL (1.6-2.6); Phosphorus 2.7 mg/dL (2.3-4.7)
[2017-07-22 04:45] LABS: Anion Gap 16 mmol/L (10-20); Carbon Dioxide 39 mmol/L (23-31); Chloride 91 mmol/L (98-107); Potassium 3.1 mmol/L (3.5-5.1); Sodium 143 mmol/L (136-145)
[2017-07-22] MEDS ORDERED: Magnesium Sulfate 3 GM in Sodium Chloride 0.9% 100 ML IVPB SCH (08:00)
[2017-07-22] MEDS ORDERED: Potassium Chloride 20 MEQ TAB PO SCH ×2 (08:00→12:00)
[2017-07-22] MEDS: Losartan 25 MG TAB PO SCH (08:36)
[2017-07-22] MEDS: DULoxetine 30 MG CAP PO SCH ×2 (08:36→22:41)
[2017-07-22] MEDS: Apixaban 5 MG TAB PO SCH ×2 (08:37→22:41)
[2017-07-22] MEDS: Furosemide 40 MG TAB PO SCH (08:37)
[2017-07-22] MEDS: Mycophenolate 250 MG CAP PO SCH ×2 (08:37→22:41)
[2017-07-22] MEDS: Mometasone/Formoterol 120 PUFF INHALER INH SCH ×2 (09:10→19:03)
--- NOTE | 2017-07-22 09:29 | PRG ---
DATE OF SERVICE: 07/22/2017 SERVICE: Pulmonary Medicine. INTERVAL HISTORY: The patient is doing fine from a cardiovascular and respiratory standpoint. Her b reathing has actually improved a little bit. She is able to take a bath yesterday. She is breathing as well as she has in the past several months. She denies any current chest pain, nausea or vomitin g. PHYSICAL EXAMINATION: VITAL SIGNS: Afebrile, pulse 91, blood pressure 135/86, respirations 20, saturation 100% on 2 liters nasal cannula. GENERAL: Patient is awake, alert, no apparent distress. LUNGS: Excellent air entry with no prolonged expiratory phase. Crackles are present. No wheezing o r rhonchi are appreciated. HEART: Normal rate and regular. ABDOMEN: Soft, nontender, nondistended. Bowel sounds are positive. MUSCULOSKELETAL: No cyanosis or clubbing. There is no pitting in the bilateral lower extremities. NEUROLOGIC: Grossly nonfocal. LABORATORY DATA: WBC 8.9, hemoglobin 11.6, platelets 303,000. INR 1.5. Creatinine 0.67. Bicarbona te 39 and up trending, chloride 91, potassium 3.1, and magnesium 1.5. ASSESSMENT: 1. Acute on chronic hypoxic respiratory failure, resolved to baseline. 2. Chronic hypercapnic respiratory failure. 3. Acute pulmonary embolism. 4. Idiopathic pulmonary fibrosis, advanced. 5. Pulmonary hypertension, severe with right ventricular heart failure. DISCUSSION AND PLAN: We will continue daily dose of Lasix. I will drop the dose to 20 mg. I will r eplace magnesium and potassium today. From my perspective, she is stable for transition out of the ospital. I have already made a referral [facility] to see if she has anything that would benefit from pulmonary vasodilators.
--- NOTE | 2017-07-22 10:04 | PDOC.PN ---
- Subjective Encounter Start Date: 07/22/17 Encounter Start Time: 07:30 Patient seen and examined for pulmonary embolism, she feels slight better but her dyspnea is seems baseline. No new complaints. No overnight events - Objective MAR Reviewed: Yes Vital Signs & Weight: Vital Signs (12 hours) Temp Pulse Resp BP Pulse Ox 07/22/17 09:10 81 20 100 07/22/17 08:59 100 07/22/17 08:57 91 20 100 07/22/17 07:00 98.2 F 89 20 135/86 100 07/22/17 06:30 98.5 F 91 20 133/86 100 07/22/17 01:50 100 07/21/17 23:23 93 16 100 Weight Admit Weight 83 lb 8 oz Weight 79 lb 8 oz I&O: 07/21/17 07/22/17 07/23/17 06:59 06:59 06:59 Intake Total 240 1401 Output Total 1750 1345 Balance -1510 -5384 Result Diagrams: 07/22/17 03:51 07/22/17 03:51 Additional Labs: Accuchecks 07/22/17 07/21/17 07/21/17 06:33 20:27 17:22 POC Glucose 107 192 H 166 H 07/21/17 11:07 POC Glucose 260 H EKG Reviewed by me: Yes Phys Exam - Physical Examination Constitutional: NAD HEENT: PERRLA, moist MMs, sclera anicteric Neck: no JVD, supple Respiratory: no wheezing, no rhonchi bilateral coarse rales Cardiovascular: RRR, no rub SM+ Gastrointestinal: soft, non-tender, no distention, positive bowel sounds Musculoskeletal: no edema, pulses present Neurological: non-focal, normal sensation, moves all 4 limbs Lymphatic: no nodes Psychiatric: normal affect, A&O x 3 Skin: no rash, normal turgor Dx/Plan (1) Acute and chronic respiratory failure with hypoxia Code(s): J96.21 - ACUTE AND CHRONIC RESPIRATORY FAILURE WITH HYPOXIA Status: Acute (2) Demand ischemia of myocardium Code(s): I24.8 - OTHER FORMS OF ACUTE ISCHEMIC HEART DISEASE Status: Acute (3) Pulmonary embolism Code(s): I26.99 - OTHER PULMONARY EMBOLISM WITHOUT ACUTE COR PULMONALE Status : Acute (4) Anxiety and depression Code(s): F41.9 - ANXIETY DISORDER, UNSPECIFIED; F32.9 - MAJOR DEPRESSIVE DISORDER, SINGLE EPISODE, UNSPECIFIED Status: Chronic (5) COR (chronic cor pulmonale) Code(s): I27.81 - COR PULMONALE (CHRONIC) Status: Chronic (6) Diabetes type 2, controlled Code(s): E11.9 - TYPE 2 DIABETES MELLITUS WITHOUT COMPLICATIONS Status: Chronic (7) Hyperlipidemia Code(s): E78.5 - HYPERLIPIDEMIA, UNSPECIFIED Status: Chronic (8) Hypertension Code(s): I10 - ESSENTIAL (PRIMARY) HYPERTENSION Status: Chronic (9) Idiopathic pulmonary fibrosis Code(s): J84.112 - IDIOPATHIC PULMONARY FIBROSIS Status: Chronic (10) Protein-calorie malnutrition, moderate Code(s): E44.0 - MODERATE PROTEIN-CALORIE MALNUTRITION Status: Chronic (11) Pulmonary hypertension, moderate to severe Code(s): I27.20 - PULMONARY HYPERTENSION, UNSPECIFIED Status: Chronic (12) Severe tricuspid regurgitation Code(s): I07.1 - RHEUMATIC TRICUSPID INSUFFICIENCY Status: Chronic (13) Hypokalemia Code(s): E87.6 - HYPOKALEMIA Status: Acute (14) Hypomagnesemia Code(s): E83.42 - HYPOMAGNESEMIA Status: Acute - Plan cont current plan of care, plan discussed w/ family, PT/OT, respiratory therapy * currently on elliquis , after 7 days, will reduce to 5 mg po bid * today will reduced lasix * will replace potassium and magnesium * will transfer to medical floor * discharge planning * medication reviewed as below * symptomatic treatment * discussed with daughter. Review of Systems - Review of Systems Constitutional: weakness. negative: fever, chills, sweats, malaise, other Eyes: negative: Pain, Vision Change, Conjunctivae Inflammation, Eyelid Inflammation, Redness, Other ENT: negative: Ear Pain, Ear Discharge, Nose Pain, Nose Discharge, Nose Congestion, Mouth Pain, Mouth Swelling, Throat Pain, Throat Swelling, Other Respiratory: Cough, Shortness of Breath, SOB with Excertion. negative: Dry, Hemoptysis, Pleuritic Pain, Sputum, Wheezing Cardiovascular: negative: chest pain, palpitations, orthopnea, paroxysmal nocturnal dyspnea, edema, light headedness, other Gastrointestinal: negative: Nausea, Vomiting, Abdominal Pain, Diarrhea, Constipation, Melena, Hematochezia, Other Genitourinary: negative: Dysuria, Frequency, Incontinence, Hematuria, Retention , Other Musculoskeletal: negative: Neck Pain, Shoulder Pain, Arm Pain, Back Pain, Hand Pain, Leg Pain, Foot Pain, Other Skin: negative: Rash, Lesions, Rai, Bruising, Other - Medications/Allergies Allergies/Adverse Reactions: Allergies Allergy/AdvReac Type Severity Reaction Status Date / Time No Known Drug Allergies Allergy Verified 07/19/17 17:18 Medications: Current Medications Acetaminophen (Tylenol) 650 mg PO Q4H PRN PRN Reason: Headache/Fever or Pain Hydrocodone Bitart/Acetaminophen ([place] 5/325) 1 tab PO Q4H PRN PRN Reason: Moderate Pain (4-6) Al Hydroxide/Mg Hydroxide (Maalox) 30 ml PO Q6H PRN PRN Reason: Heartburn or Indigestion Last Admin: 07/21/17 22:38 Dose: 30 ml Albuterol/Ipratropium (Duoneb) 3 ml NEB [id number] [facility] Last Admin: 07/22/17 08:57 Dose: 3 ml Albuterol/Ipratropium (Duoneb) 3 ml NEB [id number] PRN PRN Reason: SOB &/or Wheezing Apixaban (Eliquis) 10 mg PO BID [facility] Last Admin: 07/22/17 08:37 Dose: 10 mg Artificial Tears (Tears Renewed 15ml Bottle) 0 drop EA EYE PRN PRN PRN Reason: Dry Eyes Aspirin (Aspirin Chewable) 81 mg PO DAILY [facility] Last Admin: 07/22/17 08:37 Dose: 81 mg Atorvastatin Calcium (Lipitor) 80 mg PO [facility] Last Admin: 07/21/17 20:26 Dose: 80 mg Benzonatate (Tessalon) 100 mg PO Q4H PRN PRN Reason: Cough Dextrose/Water (Dextrose 50%) 25 gm SLOW IVP PRN PRN PRN Reason: Hypoglycemia Duloxetine HCl (Cymbalta) 30 mg PO BID [facility] Last Admin: 07/22/17 08:36 Dose: 30 mg [facility]) [facility] Glucagon (Glucagon) 1 mg IM PRN PRN PRN Reason: Hypoglycemia Guaifenesin (Robitussin Sf) 200 mg PO Q4H PRN PRN Reason: Cough Hydralazine HCl (Apresoline) 10 mg SLOW IVP Q4H PRN PRN Reason: Systolic BP > 180 Dextrose/Water (D5w) 1,000 mls @ 0 mls/hr IV .Q0M PRN; As Directed PRN Reason: Hypoglycemia Magnesium Sulfate 3 gm/ Sodium (Chloride) 106 mls @ 100 mls/hr IVPB NOW [facility] Stop: 07/22/17 12:00 Last Admin: 07/22/17 08:37 Dose: 106 mls Insulin Human Lispro (Humalog) 0 units SC .AGGRESSIVE SLIDING PRN PRN Reason: Aggressive Correctional Scale Last Admin: 07/21/17 11:22 Dose: 9 unit Insulin Human Lispro (Humalog) 0 units SC .BEDTIME SLIDING SC PRN PRN Reason: Bedtime Correctional Scale Last Admin: 07/20/17 20:33 Dose: 2 unit Loperamide HCl (Imodium) 2 mg PO PRN PRN PRN Reason: Diarrhea/Loose Stools Loratadine (Claritin) 10 mg PO DAILYPRN PRN PRN Reason: Sinus Symptoms Losartan Potassium (Cozaar) 100 mg PO DAILY [facility] Last Admin: 07/22/17 08:36 Dose: 100 mg Magnesium Hydroxide (Milk Of Magnesium) 30 ml PO DAILYPRN PRN PRN Reason: Constipation Mineral Oil/White Petrolatum (Eucerin Cream) 0 gm TOP BIDPRN PRN PRN Reason: Dry Skin Mometasone Furoate/Formoterol Fumar (Dulera 200 Mcg/5 Mcg Inhaler) 2 puff INH BID-RT [facility] Last Admin: 07/22/17 09:10 Dose: 2 puff Mycophenolate Mofetil (Cellcept) 500 mg PO BID [facility] Last Admin: 07/22/17 08:37 Dose: 500 mg Ondansetron HCl (Zofran Odt) 4 mg PO Q6H PRN PRN Reason: Nausea/Vomiting Last Admin: 07/22/17 08:36 Dose: 4 mg Ondansetron HCl (Zofran) 4 mg IVP Q6H PRN PRN Reason: Nausea/Vomiting Pantoprazole Sodium (Protonix) 40 mg PO DAILY [facility] Last Admin: 07/22/17 08:36 Dose: 40 mg Phenol (Chloraseptic [place] 180 Ml Bot) 0 ml PO PRN PRN PRN Reason: Sore Throat Last Admin: 07/22/17 09:50 Dose: 1 spray Potassium Chloride (K-Dur) 40 meq PO NOW [facility] Stop: 07/22/17 12:00 Last Admin: 07/22/17 08:37 Dose: 40 meq Potassium Chloride (K-Dur) 40 meq PO 1200 [facility] Stop: 07/22/17 14:00 Prednisone (Prednisone) 15 [facility] Senna (Senokot) 2 tab PO HSPRN PRN PRN Reason: Constipation Sodium Chloride ([place] Nasal [place] 0.65%) 0 ml EA NARE QIDPRN PRN PRN Reason: Nasal Congestion Sodium Chloride (Flush - Normal Saline) 10 ml IVF Q12HR [facility] Last Admin: 07/22/17 08:38 Dose: 10 ml Sodium Chloride (Flush - Normal Saline) 10 ml IVF PRN PRN PRN Reason: Saline Flush
[2017-07-22] MEDS: HumaLOG 300 UNITS/3 ML VIAL SC PRN (10:32)
[2017-07-22] MEDS: Mag-Al 1200 mg/1200 mg/30 ML UDCUP PO PRN (17:59)
[2017-07-22] MEDS: Atorvastatin Calcium 40 MG TAB PO SCH (22:40)
[2017-07-23 05:45] LABS: BUN (Urea Nitrogen) 18 mg/dL (9.8-20.1); Calc. Creatinine Clearance 53 mL/min (70-130); Estimated GFR-MDRD Greater than 90; Glucose 100 mg/dL (80-115); Magnesium 2.1 mg/dL (1.6-2.6)
[2017-07-23 05:54] LABS: Anion Gap 12 mmol/L (10-20); Carbon Dioxide 38 mmol/L (23-31); Chloride 92 mmol/L (98-107); Sodium 138 mmol/L (136-145)
[2017-07-23] MEDS: Mometasone/Formoterol 120 PUFF INHALER INH SCH (07:12)
[2017-07-23] MEDS ORDERED: Furosemide 20 MG TAB PO SCH (07:30)
[2017-07-23] MEDS: Losartan 25 MG TAB PO SCH (07:54)
[2017-07-23] MEDS: DULoxetine 30 MG CAP PO SCH (07:56)
[2017-07-23] MEDS: Apixaban 5 MG TAB PO SCH (07:56)
[2017-07-23] MEDS: Mycophenolate 250 MG CAP PO SCH (07:57)
[2017-07-23 07:59] VITALS: BP 124/81; TEMP 97.4
[2017-07-23] MEDS ORDERED: predniSONE 5 MG TAB PO SCH (08:00)
--- NOTE | 2017-07-23 10:00 | PDOC.PN ---
- Subjective Encounter Start Date: 07/23/17 Encounter Start Time: 09:00 Patient seen and examined for PE. No new complaints. No overnight events - Objective MAR Reviewed: Yes Vital Signs & Weight: Vital Signs (12 hours) Temp Pulse Resp BP Pulse Ox 07/23/17 07:58 97.4 F L 101 H 18 124/81 93 L 07/23/17 07:11 97 16 96 07/23/17 04:16 98.6 F 97 22 H 128/82 95 07/23/17 00:00 99.1 F 96 24 H 125/83 95 07/22/17 23:53 93 L Weight Admit Weight 83 lb 8 oz Weight 79 lb 8 oz I&O: 07/22/17 07/23/17 07/24/17 06:59 06:59 06:59 Intake Total 1401 480 Output Total 2675 Balance -1274 480 Result Diagrams: 07/22/17 03:51 07/23/17 04:31 Additional Labs: Accuchecks 07/23/17 07/22/17 07/22/17 04:54 21:05 16:21 POC Glucose 97 149 H 190 H 07/22/17 10:27 POC Glucose 169 H Phys Exam - Physical Examination Constitutional: NAD HEENT: PERRLA, moist MMs, sclera anicteric Neck: no JVD, supple Respiratory: no wheezing, no rhonchi coarse rales+ Cardiovascular: RRR, no significant murmur, no rub Gastrointestinal: soft, non-tender, no distention, positive bowel sounds Musculoskeletal: no edema, pulses present Neurological: non-focal, normal sensation, moves all 4 limbs Psychiatric: normal affect, A&O x 3 Skin: no rash, normal turgor Dx/Plan (1) Acute and chronic respiratory failure with hypoxia Code(s): J96.21 - ACUTE AND CHRONIC RESPIRATORY FAILURE WITH HYPOXIA Status: Acute (2) Demand ischemia of myocardium Code(s): I24.8 - OTHER FORMS OF ACUTE ISCHEMIC HEART DISEASE Status: Acute (3) Pulmonary embolism Code(s): I26.99 - OTHER PULMONARY EMBOLISM WITHOUT ACUTE COR PULMONALE Status : Acute (4) Anxiety and depression Code(s): F41.9 - ANXIETY DISORDER, UNSPECIFIED; F32.9 - MAJOR DEPRESSIVE DISORDER, SINGLE EPISODE, UNSPECIFIED Status: Chronic (5) COR (chronic cor pulmonale) Code(s): I27.81 - COR PULMONALE (CHRONIC) Status: Chronic (6) Diabetes type 2, controlled Code(s): E11.9 - TYPE 2 DIABETES MELLITUS WITHOUT COMPLICATIONS Status: Chronic (7) Hyperlipidemia Code(s): E78.5 - HYPERLIPIDEMIA, UNSPECIFIED Status: Chronic (8) Hypertension Code(s): I10 - ESSENTIAL (PRIMARY) HYPERTENSION Status: Chronic (9) Idiopathic pulmonary fibrosis Code(s): J84.112 - IDIOPATHIC PULMONARY FIBROSIS Status: Chronic (10) Protein-calorie malnutrition, moderate Code(s): E44.0 - MODERATE PROTEIN-CALORIE MALNUTRITION Status: Chronic (11) Pulmonary hypertension, moderate to severe Code(s): I27.20 - PULMONARY HYPERTENSION, UNSPECIFIED Status: Chronic (12) Severe tricuspid regurgitation Code(s): I07.1 - RHEUMATIC TRICUSPID INSUFFICIENCY Status: Chronic (13) Hypokalemia Code(s): E87.6 - HYPOKALEMIA Status: Acute (14) Hypomagnesemia Code(s): E83.42 - HYPOMAGNESEMIA Status: Acute - Plan cont current plan of care, plan discussed w/ family, respiratory therapy * she does not want rehab or snu * now oxygen requirement is at baseline * stable for discharge if pulmonary OK * medication reviewed as below * symptomatic treatment. Review of Systems - Review of Systems Eyes: negative: Pain, Vision Change, Conjunctivae Inflammation, Eyelid Inflammation, Redness, Other ENT: negative: Ear Pain, Ear Discharge, Nose Pain, Nose Discharge, Nose Congestion, Mouth Pain, Mouth Swelling, Throat Pain, Throat Swelling, Other Respiratory: SOB with Excertion. negative: Cough, Dry, Shortness of Breath, Hemoptysis, Pleuritic Pain, Sputum, Wheezing Cardiovascular: negative: chest pain, palpitations, orthopnea, paroxysmal nocturnal dyspnea, edema, light headedness, other Gastrointestinal: negative: Nausea, Vomiting, Abdominal Pain, Diarrhea, Constipation, Melena, Hematochezia, Other Genitourinary: negative: Dysuria, Frequency, Incontinence, Hematuria, Retention , Other Musculoskeletal: negative: Neck Pain, Shoulder Pain, Arm Pain, Back Pain, Hand Pain, Leg Pain, Foot Pain, Other Skin: negative: Rash, Lesions, Rai, Bruising, Other - Medications/Allergies Allergies/Adverse Reactions: Allergies Allergy/AdvReac Type Severity Reaction Status Date / Time No Known Drug Allergies Allergy Verified 07/19/17 17:18 Medications: Current Medications Acetaminophen (Tylenol) 650 mg PO Q4H PRN PRN Reason: Headache/Fever or Pain Hydrocodone Bitart/Acetaminophen ([place]co 5/325) 1 tab PO Q4H PRN PRN Reason: Moderate Pain (4-6) Al Hydroxide/Mg Hydroxide (Maalox) 30 ml PO Q6H PRN PRN Reason: Heartburn or Indigestion Last Admin: 07/22/17 17:59 Dose: 30 ml Albuterol/Ipratropium (Duoneb) 3 ml NEB [id number] [facility] Last Admin: 07/23/17 07:11 Dose: 3 ml Albuterol/Ipratropium (Duoneb) 3 ml NEB [id number] PRN PRN Reason: SOB &/or Wheezing Apixaban (Eliquis) 10 mg PO BID [facility] Last Admin: 07/23/17 07:56 Dose: 10 mg Artificial Tears (Tears Renewed 15ml Bottle) 0 drop EA EYE PRN PRN PRN Reason: Dry Eyes Aspirin (Aspirin Chewable) 81 mg PO DAILY [facility] Last Admin: 07/23/17 07:58 Dose: 81 mg Atorvastatin Calcium (Lipitor) 80 mg PO HS [facility] Last Admin: 07/22/17 22:40 Dose: 80 mg Benzonatate (Tessalon) 100 mg PO Q4H PRN PRN Reason: Cough Last Admin: 07/22/17 18:45 Dose: 100 mg Dextrose/Water (Dextrose 50%) 25 gm SLOW IVP PRN PRN PRN Reason: Hypoglycemia Duloxetine HCl (Cymbalta) 30 mg PO BID [facility] Last Admin: 07/23/17 07:56 Dose: 30 mg Furosemide (Lasix) 20 mg PO DAILY-AC [facility] Last Admin: 07/23/17 07:57 Dose: 20 mg Glucagon (Glucagon) 1 mg IM PRN PRN PRN Reason: Hypoglycemia Guaifenesin (Robitussin Sf) 200 mg PO Q4H PRN PRN Reason: Cough Hydralazine HCl (Apresoline) 10 mg SLOW IVP Q4H PRN PRN Reason: Systolic BP > 180 Dextrose/Water (D5w) 1,000 mls @ 0 mls/hr IV .Q0M PRN; As Directed PRN Reason: Hypoglycemia Insulin Human Lispro (Humalog) 0 units SC .AGGRESSIVE SLIDING PRN PRN Reason: Aggressive Correctional Scale Last Admin: 07/22/17 10:32 Dose: 3 unit Insulin Human Lispro (Humalog) 0 units SC .BEDTIME SLIDING SC PRN PRN Reason: Bedtime Correctional Scale Last Admin: 07/20/17 20:33 Dose: 2 unit Loperamide HCl (Imodium) 2 mg PO PRN PRN PRN Reason: Diarrhea/Loose Stools Loratadine (Claritin) 10 mg PO DAILYPRN PRN PRN Reason: Sinus Symptoms Losartan Potassium (Cozaar) 100 mg PO DAILY [facility] Last Admin: 07/23/17 07:54 Dose: 100 mg Magnesium Hydroxide (Milk Of Magnesium) 30 ml PO DAILYPRN PRN PRN Reason: Constipation Mineral Oil/White Petrolatum (Eucerin Cream) 0 gm TOP BIDPRN PRN PRN Reason: Dry Skin Mometasone Furoate/Formoterol Fumar (Dulera 200 Mcg/5 Mcg Inhaler) 2 puff INH BID-RT [facility] Last Admin: 07/23/17 07:12 Dose: 2 puff Mycophenolate Mofetil (Cellcept) 500 mg PO BID [facility] Last Admin: 07/23/17 07:57 Dose: 500 mg Ondansetron HCl (Zofran Odt) 4 mg PO Q6H PRN PRN Reason: Nausea/Vomiting Last Admin: 07/22/17 08:36 Dose: 4 mg Ondansetron HCl (Zofran) 4 mg IVP Q6H PRN PRN Reason: Nausea/Vomiting Pantoprazole Sodium (Protonix) 40 mg PO DAILY [facility] Last Admin: 07/23/17 07:58 Dose: 40 mg Phenol (Chloraseptic [place] 180 Ml Bot) 0 ml PO PRN PRN PRN Reason: Sore Throat Last Admin: 07/22/17 09:50 Dose: 1 spray Prednisone (Prednisone) 15 mg PO QAM[facility] Last Admin: 07/23/17 07:55 Dose: 15 mg Senna (Senokot) 2 tab PO HSPRN PRN PRN Reason: Constipation Sodium Chloride ([place] Nasal [place] 0.65%) 0 ml EA NARE QIDPRN PRN PRN Reason: Nasal Congestion Sodium Chloride (Flush - Normal Saline) 10 ml IVF Q12HR [facility] Last Admin: 07/23/17 07:58 Dose: 10 ml Sodium Chloride (Flush - Normal Saline) 10 ml IVF PRN PRN PRN Reason: Saline Flush
--- NOTE | 2017-07-23 10:31 | DIS ---
DATE OF ADMISSION: 07/19/2017 DATE OF DISCHARGE: 07/23/2017 PRIMARY CARE PHYSICIAN: Dr. Cherry Alfonso. DISCHARGE DISPOSITION: Home. PRIMARY DISCHARGE DIAGNOSES: Acute on chronic respiratory failure with hypoxia; demand ischemia of m yocardium; hypokalemia, corrected; hypomagnesemia, corrected; pulmonary embolism. SECONDARY DISCHARGE DIAGNOSES: Severe tricuspid regurgitation; [id number] pulmonary hyperten callie; moderate protein-calorie malnutrition; idiopathic pulmonary fibrosis; chronic respiratory failu re, on home oxygen; hypertension; dyslipidemia; diabetes, type 2; chronic cor pulmonale; anxiety and depression. PRIMARY PROCEDURE/OPERATION: None. RADIOLOGICAL INVESTIGATION: CT angio was positive for pulmonary embolism. Ultrasound was negative f or any DVT. Chest x-ray showed pulmonary fibrosis. Echocardiography showed pulmonary hypertension, tricuspid regurgitation. SIGNIFICANT LABORATORY DATA: WBC 8.9, hemoglobin 11.6, platelets 303. INR 1.5. Sodium 138, creatin ine 0.60. DISCHARGE MEDICATIONS: Eliquis 10 mg p.o. b.i.d. until 07/26/2017 and then 5 mg p.o. b.i.d., Ventoli n inhaler 2 puffs q.6 hourly p.r.n., Lipitor 80 mg p.o. daily, Cymbalta 30 mg p.o. b.i.d., Lasix 20 m g p.o. daily, losartan 100 mg p.o. daily, metformin 1000 mg p.o. b.i.d., Dulera two-puff inhalation b .i.d., CellCept 500 mg p.o. b.i.d., Protonix 40 mg p.o. daily, prednisone 15 mg p.o. daily. CONTRAINDICATIONS: None. CODE STATUS: FULL CODE. INPATIENT CONSULTANTS: Dr. Lobo was following while in hospital. TEST RESULTS PENDING ON DISCHARGE: None. ALLERGIES: No known drug allergy. DISCHARGE PLAN: Post hospital, the patient is advised to follow up with Dr. Lobo in 1 week. The patient will make appointment with primary care physician. HOSPITAL COURSE: This is a 67-year-old female, who has chronic idiopathic pulmonary fibrosis as well as chronic respiratory failure, on home oxygen. She went to Dr. Lobo's office for regular follow up visit where she appeared tachypneic, tachycardic, and hypoxic; even with her home oxygen, she was hypoxic, and that is why she was sent to emergency room. In the emergency room, the patient was tach ycardic and hypoxic and that is why CT angio was done, which showed subsegmental pulmonary embolism. She has underlying chronic pulmonary fibrosis. She was requiring high flow oxygen and that is why beverly edmondson admitted this patient to [facility]. Pulmonary group was consulted. We did echocardiography, which show ed [id number] pulmonary hypertension and severe tricuspid regurgitation. Initially, we treat ed here her with Lovenox 1 mg/kg and subsequently Pulmonary started on Eliquis therapy. We also abi mikhail her with Lasix while in the hospital and the diuretic dose was reduced to above. She had abnorma l electrolytes that was also corrected while in hospital. Upon stabilization, this patient was transferred to medical floor. Now, her oxygen requirement is ba ck to baseline level. She is ambulatory and overall doing very well. She does not want to go to a [facility] halfway or rehabilitation. She does have home oxygen already. During this admission, we are adding Dulera and Eliquis for pulmonary embolism. While in hospital, she was given temporary IV steroid, but on discharge, she will continue her home dose of prednisone therapy. Rest of medicatio n was continued while in hospital as well as upon discharge. The patient is stable for discharge today, though this patient is very high risk for recurrent admiss ion, because of her comorbidities. The patient is seen and examined at bedside today. Plan of care discussed with the family member. Av quiroga see my progress note from today for further details.
== END 2017-07-23 15:54 | disposition home or self-care (01) | DRG 189 ==
LOC: ERS 09:41 → ERHOLD 14:05 → IMCU/EMU 17:08 → T4-B 07-22 10:53
PROVIDERS: ADMIT Internal Medicine; ATTEND Internal Medicine
DX: J96.21 Acute and chronic respiratory failure with hypoxia (principal); I26.99 Other pulmonary embolism without acute cor pulmonale; I24.8 Other forms of acute ischemic heart disease; E44.0 Moderate protein-calorie malnutrition; Z68.1 Body mass index [BMI] 19.9 or less, adult; E87.6 Hypokalemia; E83.42 Hypomagnesemia; I07.1 Rheumatic tricuspid insufficiency; I27.20 Pulmonary hypertension, unspecified; J84.112 Idiopathic pulmonary fibrosis; Z99.81 Dependence on supplemental oxygen; I10 Essential (primary) hypertension; E78.5 Hyperlipidemia, unspecified; I27.81 Cor pulmonale (chronic); F32.9 Major depressive disorder, single episode, unspecified; F41.9 Anxiety disorder, unspecified; Z79.84 Long term (current) use of oral hypoglycemic drugs; E11.65 Type 2 diabetes mellitus with hyperglycemia
CPT/HCPCS: 36415; 36416; 71045; 71275; 80048; 80053; 80061; 82330; 82553; 82565; 82803; 83735; 84100; 84484; 85014; 85018; 85025; 85049; 85379; 85610; 93005; 93306; 93970; 94640; 94760; 96372; A4216; G8978-GP-CL; G8979-GP-CJ; G8987-GO-CJ; G8988-GO-CI; J1650; J3475; J7050; J7517; J7620; Q0162